=== PATIENT | male | born 1990 | race Caucasian/White ===

== ENCOUNTER 2016-09-12 05:35 | Observation (INO) | payer OTHER ==
[~2016-09-12] VITALS: Ht 182.9 cm; Wt 75.4 kg
[2016-09-12] VITALS (25 sets, daily range): BP systolic 101–142; BP diastolic 51–70; PULSE 71–108; RESP 13–21; Ht 182.9 cm; Wt 75.4 kg
[2016-09-12] MEDS ORDERED: GELATIN SIZE 100 SPONGE ONE (06:24)
[2016-09-12] MEDS ORDERED: BUPIVACAINE 0.25%/EPI (SDV) 30 ML INJ ONE (06:24)
[2016-09-12] MEDS ORDERED: BETAMET NA PHOS/AC(6 MG/ML) 5ML INJ ONE (06:25)
[2016-09-12] MEDS ORDERED: THROMBIN 5000 UNIT VIAL ONE ×2 (06:25→10:35)
[2016-09-12] MEDS ORDERED: POLYMYXIN/BACITRACIN 1L IRRIG ONE (06:25)
[2016-09-12] MEDS ORDERED: CEFAZOLIN 2 GM/50 ML (PMX) 50 ML IVPB SCH (06:30)
[2016-09-12] MEDS ORDERED: LACTATED RINGER'S 1,000 ML IV* SCH (06:30)
[2016-09-12] MEDS ORDERED: ACET1TAB40 PO (06:50)
--- NOTE | 2016-09-12 07:01 | HPN ---
Date/Time of Note Date/Time of Note DATE: 09/12/16 TIME: 07:01 Interval H&P Admission Note Pt. seen H&P reviewed: No system changes LIA QUINTANA MD Sep 12, 2016 07:01
[2016-09-12] MEDS ORDERED: MIDAZOLAM 1 MG/ML 2 ML INJ ONE (07:17)
[2016-09-12] MEDS ORDERED: PROPOFOL 20 ML ONE ×2 (07:17→11:26)
[2016-09-12] MEDS ORDERED: ROCURONIUM 50 MG INJ ONE (07:17)
[2016-09-12] MEDS ORDERED: HYDROmorphONE 2 MG/ML SYG ONE (07:18)
[2016-09-12] MEDS ORDERED: METOCLOPRAMIDE 10 MG INJ ONE (07:18)
[2016-09-12] MEDS ORDERED: CEFAZOLIN 1 GM INJ ONE (07:43)
[2016-09-12] MEDS ORDERED: PHENYLephrine (100 MCG/ML) 5ML SYG ONE (07:50)
[2016-09-12] MEDS ORDERED: ONDANSETRON 4 MG INJ IV PRN ×2 (08:30→12:00)
[2016-09-12] MEDS ORDERED: METOCLOPRAMIDE 10 MG INJ IV PRN (08:30)
[2016-09-12] MEDS ORDERED: MEPERIDINE 25 MG INJ IV PRN (08:30)
[2016-09-12] MEDS ORDERED: HYDROmorphONE (0.2 MG/ML) 10ML SYG IV PRN ×3 (08:30)
[2016-09-12] MEDS ORDERED: DIPHENHYDRAMINE 50 MG INJ IV PRN (08:30)
--- NOTE | 2016-09-12 11:57 | OPR ---
Date/Time of Note Date/Time of Note DATE: 09/12/16 TIME: 11:39 Operative Report Free Text/Dictation DATE OF OPERATION: 09/12/2016 PREOPERATIVE DIAGNOSES: 1. 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 Left sided L4-L5 lateral recess stenosis with L5 radiculopathy POSTOPERATIVE DIAGNOSES: 1. 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 Left sided L4-L5 lateral recess stenosis with L5 radiculopathy OPERATION PERFORMED: 1. Left L5-S1 microdiscectomy 2. Left L4-L5 nichole-laminectomy, medial facetectomy, and foraminotomy SURGEON: Lia Quintana MD ADJUNCT PROFESSOR OF VOICE: Darin Carver MD ANESTHESIA: General endotracheal ESTIMATED BLOOD LOSS: 150 mL SURGICAL INDICATION: The patient is a 26 year-old male who presents with a several year history of worsening left lower extremity pain with left sided L5 and S1 radiculopathy. He was found to have a left paracentral disc herniation at L5-S1 and left sided lateral recess stenosis at L4-L5 which correlated well with his symptoms. The patient had failed conservative treatment. Risks, benefits, and alternatives to a L5-S1 left sided microdiscectomy and L4-5 left sided decompression were explained to the patient and they wished to proceed. Risks explained included but were not exclusive of bleeding, infection, cauda equina syndrome, nerve injury, dural tear, iatrogenic instability requiring fusion, recurrent disc herniation, fracture, vascular injury, bowel injury, stroke, heart attack and pulmonary embolism. DESCRIPTION OF TECHNIQUE: The patient was identified in the preoperative area and taken to the operating room. Rapid induction of general endotracheal anesthesia was performed. The patient was given 2 g of cefazolin for prophylaxis. The patient was then placed in the prone position on the Jose Ramon frame on a Jake flat top table with all prominences well padded. The back was prepped and draped in the usual sterile manner. Using a spinal needle and intraoperative fluoroscopy, the appropriate level was clearly identified (L5-S1) . The skin was injected using 0.25% Marcaine with epinephrine. Longitudinal midline incision was then created using a 10 blade. Further dissection through soft tissue was performed using electrocautery down to the left spinous processes.Dissection was taken down the lamina and over the facet joint capsule. A self-retaining retractor was applied. Again, intraoperative fluoroscopy confirmed the level.The microscope was brought into use for microdissection. A small portion of the caudal aspect of the cephalad lamina was resected using a high-speed bur. A series of Kerrison rongeurs were then used to resect the ligamentum flavum. The dura and traversing nerve root were both directly visualized. These were retracted gently in a medial direction. Immediately, the extruded disc fragment was noted. The pseudo anulus was incised using an 11 blade. Several loose fragments of disk were removed. These were removed back to a stable portion of the disk. The disk space was further pressurized using a using normal saline through a syringe to ensure that no loose fragments remained behind. A portion of the disc was noted to be calcified. Palpation with a ball-tip probe did not reveal any further stenosis. The traversing S1 nerve root was noted to be significantly decompressed. We then focused our attention on the left sided L4-5 decompression procedure. We extended our incision proximally sing a 10 blade. Further dissection through soft tissue was performed using electrocautery down to the left L4 spinous process. Dissection was taken down the left lamina and over the facet joint capsule. A self-retaining retractor was applied. Again, intraoperative fluoroscopy confirmed the level. The microscope was brought into use for microdissection. The high-speed bur was used to thin the left L4 lamina. Kerrison rongeurs were then used to resect a the lamina, and a portion of the medial facet and the bone overlying the foramen. Ligamentum flavum was also resected using the Kerrison rongeurs. Care was taken to protect the thecal sac throughout the decompressive procedure. Palpation with a ball-tip probe did not reveal any further stenosis in the central, subarticular, or foraminal areas. The left L4 and L5 pedicles were palpated using a edda to ensure a pedicle to pedicle decompression. The traversing L5 nerve root was directly visualized and noted to be decompressed. The cephalad and caudad extent of the decompression were also confirmed using ball-tip probes and intraoperative fluoroscopy. Meticulous attention was then paid towards hemostasis using FloSeal as well as Gelfoam and thrombin. Care was taken to remove all FloSeal and Gelfoam prior to wound closure. The fascia was then closed using 0 Vicryl in an interrupted fashion. Subcutaneous tissue was closed using 2-0 Vicryl in an interrupted fashion. The skin was closed using a running 4-0 Monocryl stitch. The wound was dressed using Dermabond and a 4x4 sterile gauze. The patient was returned to the supine position. He was extubated immediately postoperatively and taken to the recovery room in stable condition. COMPLICATIONS: None. Anesthesia: general Estimated Blood Loss: 100 - 150 ml's Complications: None Pt Condition Post Procedure: stable Disposition: PACU LIA QUINTANA MD Sep 12, 2016 11:52
[2016-09-12] MEDS ORDERED: NALOXONE (0.4 MG/ML) INJ IV PRN (12:00)
[2016-09-12] MEDS ORDERED: NACL 0.9% 3 ML SYG IV SCH (12:00)
[2016-09-12] MEDS ORDERED: BETHANECHOL 25 MG TAB PO PRN (12:00)
[2016-09-12] MEDS ORDERED: PROCHLORPERAZINE 10 MG TAB PO PRN (12:00)
[2016-09-12] MEDS ORDERED: HYDROCODONE/APAP (5/325) TAB PO PRN (12:00)
[2016-09-12] MEDS ORDERED: SUCCINYLCHOLINE CHLORIDE 100 MG/5 ML SYG IV ONE (12:20)
[2016-09-12] MEDS: CEFAZOLIN 1 GM/50 ML (PMX) 50 ML IVPB SCH ×3 (13:38→23:35)
[2016-09-12] MEDS: HYDROCODONE/APAP (5/325) TAB PO PRN (15:06)
--- NOTE | 2016-09-12 17:54 | RADRPT ---
PROCEDURE: Intraoperative imaging of the lumbar spine with fluoroscopy. CLINICAL INDICATION: Back pain. Intraoperative. TECHNIQUE: 7 images of the lumbar spine were obtained in the operating room with an image intensif ier. No radiologist was in attendance. Fluoroscopy time is 21 seconds. COMPARISON: No prior study is available for comparison. FINDINGS: Images demonstrate surgical instruments overlying the lower lumbar spine. IMPRESSION: 1. Intraoperative imaging of the lumbar spine. RPTAT: QQ .Samuel Batista MD, MD Date Time Electronically viewed and signed by .Samuel Batista MD, on 09/12/2016 17:54 .R/
[2016-09-12] MEDS: HYDROmorphONE 1 MG/ML SYG IV PRN ×2 (18:25→22:45)
[2016-09-13] VITALS: BP 102/93; RESP 16
[2016-09-13] MEDS: HYDROCODONE/APAP (5/325) TAB PO PRN ×3 (01:30→10:20)
[2016-09-13] MEDS: CEFAZOLIN 1 GM/50 ML (PMX) 50 ML IVPB SCH (05:56)
--- NOTE | 2016-09-13 08:07 | PDOCDIS ---
Discharge Instructions CONDITION Patient Condition: Good HOME CARE INSTRUCTIONS: Diet Instructions: Regular ACTIVITY: Activity Restrictions: Avoid heavy lifting FOLLOW UP/APPOINTMENTS Follow-up Plan Follow-up with Dr. Quintana in 2 weeks LIA QUINTANA MD Sep 13, 2016 08:07
[2016-09-13 08:39] VITALS: BP 125/56; RESP 20
== END 2016-09-13 10:25 | disposition home or self-care (01) ==
LOC: SDS 05:35 → EDSTATUS 07:30 → SDS 11:32 → MS1 11:33
PROVIDERS: ADMIT Orthopaedic Surgery; ATTEND Orthopaedic Surgery
DX: M51.17 Intervertebral disc disorders with radiculopathy, lumbosacral region (principal); M48.06 Spinal stenosis, lumbar region
CPT/HCPCS: 63030; 63047; 72114; G0378; J0690; J0702; J1170; J2250; J2370; J2405; J2765; J7999